=== PATIENT | female | born 1950 | race Caucasian/White ===

== ENCOUNTER → 2016-10-16 | Outpatient (CLI) | payer MEDICARE ==
--- NOTE | 2016-10-16 15:21 | BD ---
EXAMINATION TYPE: MG DEXA axial skeleton. DATE OF EXAM: 10/16/2016 COMPARISON: 08.12.2007 CLINICAL HISTORY: Z78.0 POST MENOPAUSAL W/O HRT Height: 63.5 Weight: 172 FRAX RISK QUESTIONS: Alcohol (3 or more units per day): NO Family History (Parent hip fracture): NO Glucocorticoids (More than 3mos): NO (Ex: prednisone, prednisolone, methylprednisolone, dexamethasone, and hydrocortisone). History of Fracture in Adulthood: NO Secondary Osteoporosis: NO 1. Type 1 Diabetes: NO 2. Hyperthyroidism: NO 3. Menopause before 45: NO 4. Malnutrition: NO 5. Chronic liver disease: NO Rheumatoid Arthritis: NO Current Tobacco Use: NO RISK FACTORS HISTORY OF: Family History of Osteoporosis: NONE Active: YES Diet low in dairy products/other sources of calcium: YES, A BIT LOW Postmenopausal woman: [place], AT AGE 48 Lost more than 2 inches in height since high school: NO Hyperparathyroidism: NO Adrenal Insufficiency: NO MEDICATIONS: Thyroid Medications: YES Which medication: SYNTHROID How Lon YRS Additional Medications: SPORADIC INTAKE OF CALCIUM, STATIN FOR CHOLES., ZANTAC PRN Additional History: NONE TO NOTE EXAM MEASUREMENTS: Bone mineral densitometry was performed using the [email or web address] System. Bone mineral density as measured about the Lumbar spine is: ----- L1-L4(G/cm2): 1.183 T Score Values are as follows: ----- L1: 0.0 ----- L2: -0.2 ----- L3: 0.7 ----- L4: -0.5 ----- L1-L4: 0.0 Bone mineral density has: Decreased -8.8% since study of: 08.12.2007 Bone mineral density about the R hip (g/cm2): 0.987 Bone mineral density about the L hip (g/cm2): 0.967 T Score values are as follows: -----R Neck: -0.9 -----L Neck: -0.8 -----R Total: -0.2 -----L Total: -0.3 Bone mineral density has: Increased 0.1% since study of: 08.12.2007 FRAX %'S: THERE IS A 13.0% CHANCE OF A MAJOR OSTEOPOROTIC FX AND A 0.9% CHANCE OF A HIP FX.....MA OBABILITY IN 10 YRS TIME IMPRESSION: Normal (Values between +1 and -1 indicate normal bone mass). Consider repeating this study in 5 year s or sooner if there is some new clinical indication. FOR BOTH HIPS AND LUMBAR SPINE NOTE: T-SCORE=SD OF THE YOUNG ADULT MEAN.
--- NOTE | 2016-10-16 23:32 | HP ---
DATE OF DICTATION: 10/16/2016 CHIEF COMPLAINT: The patient is here for her routine gynecologic exam and mammogram. HISTORY OF PRESENT ILLNESS: This is a 66-year-old -0-1-2 with an LMP of 1988. She is status post VIRGIL and later BSO for benign reasons. The patient has a known rectocele. She denies any significant problems from this. She is without gynecologic complaints. PAST MEDICAL HISTORY: 1. Hypothyroidism. 2. Elevated cholesterol. 3. Gastroesophageal reflux disease. MEDICATIONS: 1. Levothyroxine 25 mcg daily. 2. Simvastatin 80 mg daily. 3. Zantac 75 mg daily p.r.n. 4. Multivitamin daily. 5. Calcium supplement 500 mg daily. ALLERGIES: NO KNOWN DRUG ALLERGIES. 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 SOCIAL HISTORY: She denies tobacco, alcohol and drug use. 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 REVIEW OF SYSTEMS: She has gained about 6 pounds over the last year. She denies respiratory, cardiac or GI problems. She denies maltreatment or falling. : She denies any significant problems with urinary leakage. PHYSICAL EXAM: Blood pressure 113/80. Height 5 feet 5 inches. Weight 174 pounds. Temperature 97.7, pulse 68. This is a well-developed, well-nourished white female who is alert and oriented x3, in no acute distress. HEENT is within normal limits. NECK: Supple without mass or thyromegaly. CHEST AND LUNGS: Clear to auscultation. HEART: Regular rate and rhythm. Breasts are without mass or discharge. Axillary exam is negative for adenopathy. BACK: Negative for CVA tenderness. ABDOMEN: Soft, non-tender, without palpable masses. PELVIC EXAM: External genitalia reveal mild atrophy without lesions. Vagina reveals a grade 2 rectocele which is stable from her previous exam. The vaginal cuff is well supported. There are no lesions. Bimanual exam is negative for mass or tenderness. Rectovaginal exam does confirm a small rectocele and is negative for mass or tenderness. This is also negative for occult blood. EXTREMITIES: Non-tender. IMPRESSION: 1. Yufrf-rty-ggdl-old menopausal female, status post VIRGIL and BSO for benign reasons. 2. Asymptomatic grade 2 rectocele which is stable. PLAN: 1. Pap smears have been discontinued. 2. Self breast examination was discussed. 3. Mammogram will be done today. 4. Osteoporosis prevention was discussed. Bone density testing will be done today. 5. She will plan on getting her flu shot in the fall, as she has done last year. 6. She will return in one year. SUSIE
--- NOTE | 2016-10-17 10:55 | MM ---
Reason for exam: screening (asymptomatic). Last mammogram was performed 1 year ago. History: Patient is postmenopausal and has history of other cancer at age 61. Took estrogen for 17 years beginning at age 40. Physical Findings: A clinical breast exam by your physician is recommended on an annual basis and results should be correlated with mammographic findings. MG 3D Screening Mammo W/Cad Bilateral CC and MLO view(s) were taken. Prior study comparison: October 11, 2015, bilateral MG 3d screening mammo w/cad. September 28, 2014, bilateral MG screening mammo w CAD. September 22, 2013, bilateral MG screening mammo w CAD. There are scattered fibroglandular densities. No significant changes when compared with prior studies. ASSESSMENT: Negative, BI-RAD 1 RECOMMENDATION: Routine screening mammogram of both breasts in 1 year.
== END | disposition home or self-care (01) ==
LOC: WWCWWP 07:38
PROVIDERS: ATTEND Obstetrics & Gynecology
DX: Z12.31 Encounter for screening mammogram for malignant neoplasm of breast (principal); Z78.0 Asymptomatic menopausal state
CPT/HCPCS: 77080; 77063; G0202

== ENCOUNTER → 2017-10-30 | Outpatient (CLI) | payer MEDICARE ==
[2017-10-30 11:48] VITALS: BP 114/63; PULSE 69; TEMP 97.1; BMI 29.1
--- NOTE | 2017-10-30 12:37 | P.HPOB ---
History of Present Illness H&P Date: 10/30/17 Chief Complaint: The patient is here for her routine gynecologic exam and mammogram. This is a 67-year-old 012 with an LMP of 1988. She is status post VIRGIL and later BSO for benign reasons. The patient has a known rectocele. She denies any significant problems from this. She is without gynecologic complaints. Review of Systems Weight has been stable. She denies respiratory or cardiac problems. G.I.: she has occasionally had some issues swallowing if she eats too fast and this can be with certain types of foods. She is planning and getting in upper endoscopy done because of this. Past Medical History Past Medical History: GERD/Reflux, Hyperlipidemia, Thyroid Disorder (Hypothyroid ) History of Any Multi-Drug Resistant Organisms: None Reported Past Surgical History: Hysterectomy (VIRGIL in 1988 with BSO in 1997.) Additional Past Surgical History / Comment(s): Bunion surgery. Colonoscopy 2011 (3rd). 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 - Past Family History Father Family Medical History: Myocardial Infarction ([place]) Brother(s) Family Medical History: Myocardial Infarction ([place]) Additional Family Medical History / Comment(s): Another brother had skin cancer. Medications and Allergies Home Medications Medication Instructions Recorded Confirmed Type Levothyroxine Sodium [Synthroid] mcg PO DAILY 10/30/17 History Multivitamin [Multivitamins Adult tab PO DAILY 10/30/17 History Gummies] Ranitidine HCl [Zantac] mg PO PRN 10/30/17 History Simvastatin mg PO DAILY 10/30/17 History Allergies Allergy/AdvReac Type Severity Reaction Status Date / Time No Known Allergies Allergy Unverified 10/30/17 11:43 Exam Vital Signs Temp Pulse BP 10/30/17 11:44 97.1 F L 69 114/63 Intake and Output 10/29/17 10/30/17 10/30/17 22:59 06:59 14:59 Other: Weight 79.379 kg Height 5'5", BMI 29.1. This is a well-developed well-nourished white female who is alert and oriented times 3 in no acute distress. HEENT: Within normal limits. NECK: Supple without mass or thyromegaly. CHEST AND LUNGS: Clear to auscultation. HEART: Regular rate and rhythm. BREASTS: Are without mass or discharge. AXILLARY EXAM: Negative for adenopathy. BACK: Negative for CVA tenderness. ABDOMEN: Soft, nontender, without palpable masses. PELVIC EXAM: External genitalia appears normal with mild atrophy. Vagina appears normal with mild atrophy. There is a grade 2 rectocele which is stable from her previous exams. There are no palpable pelvic masses or tenderness. RECTAL EXAM: Rectovaginal exam is negative for mass or tenderness and is negative for occult blood. This exam does confirm a small rectocele. EXTREMITIES: Nontender. IMPRESSION: 1. 67-year-old menopausal female status post VIRGIL and later BSO for benign reasons. 2. Asymptomatic grade 2 rectocele which is stable. PLAN: 1. Pap smears have been discontinued. 2. Self breast awareness was discussed with the patient. 3. Screening mammogram will be done today. 4. Osteoporosis prevention was discussed. She had a normal bone density test on 10/16/2016. This will be repeated in approximately 2021. 5. She does get flu shots in the fall. 6. She will return in one year.
--- NOTE | 2017-10-31 11:02 | MM ---
Reason for exam: screening (asymptomatic). Last mammogram was performed 1 year ago. History: Patient is postmenopausal and has history of other cancer at age 61. Took estrogen for 17 years beginning at age 40. Physical Findings: A clinical breast exam by your physician is recommended on an annual basis and results should be correlated with mammographic findings. MG 3D Screening Mammo W/Cad Bilateral CC and MLO view(s) were taken. Prior study comparison: October 16, 2016, bilateral MG 3d screening mammo w/cad. October 11, 2015, bilateral MG 3d screening mammo w/cad. The breast tissue is heterogeneously dense. This may lower the sensitivity of mammography. There is no discrete abnormality. No significant changes when compared with prior studies. ASSESSMENT: Negative, BI-RAD 1 RECOMMENDATION: Routine screening mammogram of both breasts in 1 year.
== END | disposition home or self-care (01) ==
LOC: WWCWWP 10:47
PROVIDERS: ATTEND Obstetrics & Gynecology
DX: Z12.31 Encounter for screening mammogram for malignant neoplasm of breast (principal)
CPT/HCPCS: 77063; 77067

== ENCOUNTER → 2018-04-14 | Outpatient (CLI) | payer MEDICARE ==
--- NOTE | 2018-04-15 07:45 | ECHOS ---
STRESS ECHOCARDIOGRAM DATE OF SERVICE: 04/14/2018 INDICATIONS: Chest pain. MEDICATIONS: Simvastatin, Synthroid. BASELINE HEART RATE: 92 BASELINE BLOOD PRESSURE: 100/56 MAXIMUM HEART RATE: 154 MAXIMUM BLOOD PRESSURE: 151/53 85% MPHR: 129 100% MPHR: 152 METS: 8.5 MAXIMUM STAGE REACHED: III TOTAL EXERCISE TIME: 7 minutes CLINICAL INFORMATION: Baseline EKG revealed normal sinus rhythm without significant ST-segment changes. Patient walked on a standard Ger protocol for a total duration of 7 minutes and achieved a maximal heart rate of 154 beats per minute which is well above 85% of predicted maximal. She developed some fatigue and shortness of breath but did not have any anginal symptoms. EKG developed some upsloping ST-segment changes which are considered very nonspecific. In the recovery period, there was about [address]-segment change and ST-segment depression noted unassociated with angina. The patient did not have any significant arrhythmia. By EKG criteria, this is technically considered as a positive stress test because of [address]-segment depression but no associated symptoms of angina were noted. At peak exercise, upsloping say ST-segment changes were noted. Patient exercised for 7 minutes. Baseline echo images revealed normal wall motion and wall thickening of all segments. At peak exercise, there was good augmentation of left ventricular wall motion and wall thickening of all segments suggesting that there is no evidence of any stress-induced ischemia on this study. FINAL IMPRESSION: 1. Fair exercise capacity with a technically positive stress test by EKG criteria, but this could be a false-positive. Patient did not have any angina or arrhythmia. 2. Stress echocardiogram was normal, suggesting that there is no evidence of any stress-induced ischemia on this study. MMODL / IJN: [id number] /
== END | disposition home or self-care (01) ==
LOC: RADNMMAIN 09:00
PROVIDERS: ATTEND Family Medicine
DX: R07.9 Chest pain, unspecified (principal); E78.2 Mixed hyperlipidemia; I25.10 Atherosclerotic heart disease of native coronary artery without angina pectoris
CPT/HCPCS: 93351

== ENCOUNTER → 2018-12-10 | Outpatient (CLI) | payer MEDICARE ==
[2018-12-10 09:19] VITALS: BP 104/65; PULSE 72; RESP 18; TEMP 98; BMI 30.2
--- NOTE | 2018-12-10 09:50 | P.HPOB ---
History of Present Illness H&P Date: 12/10/18 Chief Complaint: The patient is here for her routine gynecologic exam and ma mmogram. This is a 68-year-old with an LMP of 1988. The patient is status post VIRGIL and later BSO for benign reasons. The patient has a known rectocele and she denies any significant problems with this. She is without gynecologic complaints. Review of Systems She has gained about 7 pounds over the last year. She denies respiratory, cardiac and G.I. problems. She denies maltreatment or problems with falling. : she denies any significant problems with urinary leakage. Past Medical History Past Medical History: GERD/Reflux, Hyperlipidemia, Thyroid Disorder Additional Past Medical History / Comment(s): Hypothyroidism. 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 History of Any Multi-Drug Resistant Organisms: None Reported Past Surgical History: Hysterectomy Additional Past Surgical History / Comment(s): VIRGIL in 1988 and BSO in 1997. Bunion surgery. Colonoscopy 2011 (3rd). 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 - Past Family History Father Family Medical History: Myocardial Infarction ([place]) Brother(s) Family Medical History: [place]ocardial Infarction ([place]) Additional Family Medical History / Comment(s): Another brother had skin cancer. Medications and Allergies Home Medications Medication Instructions Recorded Confirmed Type Levothyroxine Sodium [Synthroid] 25 mcg PO DAILY 10/30/17 12/10/18 History Multivitamin [Multivitamins Adult 1 tab PO DAILY 10/30/17 12/10/18 History Gummies] Ranitidine HCl [Zantac] 150 mg PO DAILY PRN 10/30/17 12/10/18 History Simvastatin 80 mg PO DAILY 10/30/17 12/10/18 History Allergies Allergy/AdvReac Type Severity Reaction Status Date / Time No Known Allergies Allergy Unverified 12/10/18 09:21 Exam Vital Signs Temp Pulse Resp BP Pulse Ox 12/10/18 09:14 98.0 F 72 18 104/65 98 Intake and Output 12/09/18 12/10/18 12/10/18 22:59 06:59 14:59 Other: Weight 82.554 kg Height 5'5", weight 182 pounds, BMI 30.3. This is a well-developed well-nourished white female who is alert and oriented times 3 in no acute distress. HEENT: Within normal limits. NECK: Supple without mass or thyromegaly. CHEST AND LUNGS: Clear to auscultation. HEART: Regular rate and rhythm. BREASTS: Are without mass or discharge. AXILLARY EXAM: Negative for adenopathy. BACK: Negative for CVA tenderness. ABDOMEN: Soft, nontender, without palpable masses. PELVIC EXAM: External genitalia appears normal with mild atrophy. Vagina appears normal with mild atrophy. There is a grade to rectocele at rest. With Valsalva the rectocele approaches the introitus. There is no significant cystocele or enterocele. Bimanual examination is negative for mass or tenderness. RECTAL EXAM: Rectovaginal exam is negative for mass or tenderness and is negative for occult blood. Rectal exam confirms the rectocele. EXTREMITIES: Nontender. IMPRESSION: 1. 68-year-old menopausal female status post VIRGIL and later BSO for benign reasons with asymptomatic grade 2 to 3 rectocele. PLAN: 1. Pap smears have been discontinued. 2. Self breast awareness was discussed with the patient. 3. Screening mammogram will be done today. 4. Osteoporosis prevention was discussed. I have stressed the importance of adequate calcium, vitamin D and regular exercise. Recommended amounts of calcium and vitamin D were also discussed. She had a normal bone density test done on 10/16/2016 and this will be repeated in 2021 5. She does get flu shots in the fall. 6. She was advised to return in one year for her annual well woman exam.
--- NOTE | 2018-12-11 14:23 | MM ---
Reason for exam: screening (asymptomatic). Last mammogram was performed 1 year and 1 month ago. History: Patient is postmenopausal and has history of other cancer at age 61. Took estrogen for 17 years beginning at age 40. Physical Findings: A clinical breast exam by your physician is recommended on an annual basis and results should be correlated with mammographic findings. MG 3D Screening Mammo W/Cad Bilateral CC and MLO view(s) were taken. Prior study comparison: October 30, 2017, bilateral MG 3d screening mammo w/cad. October 16, 2016, bilateral MG 3d screening mammo w/cad. The breast tissue is heterogeneously dense. This may lower the sensitivity of mammography. No suspicious abnormality. No significant changes when compared with prior studies. ASSESSMENT: Negative, BI-RAD 1 RECOMMENDATION: Routine screening mammogram of both breasts in 1 year.
== END | disposition home or self-care (01) ==
LOC: WWCWWP 08:54
PROVIDERS: ATTEND Obstetrics & Gynecology
DX: Z12.31 Encounter for screening mammogram for malignant neoplasm of breast (principal)
CPT/HCPCS: 77063; 77067

== ENCOUNTER → 2019-12-29 | Outpatient (CLI) | payer MEDICARE ==
[2019-12-29 08:00] VITALS: BP 105/61; PULSE 70; RESP 18; TEMP 98.1
--- NOTE | 2019-12-29 08:31 | P.HPOB ---
History of Present Illness H&P Date: 12/29/19 Chief Complaint: The patient is here for her routine gynecologic exam and ma mmogram. This is a 69-year-old with an LMP of 1988. The patient is status post VIRGIL and later BSO for benign reasons. The patient is without gynecologic complaints. She has a known rectocele and denies any significant problems with this. Review of Systems The patient has lost 13 pounds over the last year. She denies respiratory, cardiac, or G.I. problems. Past Medical History Past Medical History: GERD/Reflux, Hyperlipidemia, Thyroid Disorder Additional Past Medical History / Comment(s): Hypothyroidism. 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 History of Any Multi-Drug Resistant Organisms: None Reported Past Surgical History: Hysterectomy Additional Past Surgical History / Comment(s): VIRGIL in 1988 and BSO in 1997. Bunion surgery. Colonoscopy 2018(Next after 5yr). Past Psychological History: No Psychological Hx Reported Smoking Status: Never smoker Past Alcohol Use History: Rare (5. 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 - Past Family History Father Family Medical History: Myocardial Infarction ([place]) Brother(s) Family Medical History: Myocardial Infarction ([place]) Additional Family Medical History / Comment(s): Another brother had skin cancer. Medications and Allergies Home Medications Medication Instructions Recorded Confirmed Type Levothyroxine Sodium [Synthroid] 25 mcg PO DAILY 10/30/17 12/29/19 History Multivitamin [Multivitamins Adult 1 tab PO DAILY 10/30/17 12/29/19 History Gummies] Simvastatin 80 mg PO DAILY 10/30/17 12/29/19 History Famotidine [Pepcid] 20 mg PO DAILY 12/29/19 12/29/19 History Allergies Allergy/AdvReac Type Severity Reaction Status Date / Time No Known Allergies Allergy Unverified 12/29/19 07:52 Exam Vital Signs Temp Pulse Resp BP Pulse Ox 12/29/19 07:57 98.1 F 70 18 105/61 99 Intake and Output 12/28/19 12/29/19 12/29/19 22:59 06:59 14:59 Other: Weight 76.657 kg Height 5 feet 4 inches, weight 169 pounds, BMI 29.0. This is a well-developed well-nourished white female who is alert and oriented times 3 in no acute distress. HEENT: Within normal limits. NECK: Supple without mass or thyromegaly. CHEST AND LUNGS: Clear to auscultation. HEART: Regular rate and rhythm. BREASTS: Are without mass or discharge. AXILLARY EXAM: Negative for adenopathy. BACK: Negative for CVA tenderness. ABDOMEN: Soft, nontender, without palpable masses. PELVIC EXAM: External genitalia appears normal with mild atrophy. Vagina appears normal with mild atrophy. There is a grade 2 rectocele at rest. It increases slightly with Valsalva. Bimanual examination is negative for mass or tenderness. RECTAL EXAM: Rectovaginal exam is negative for mass or tenderness and is negative for occult blood. Rectal exam also confirms the rectocele. There is no evidence of enterocele. EXTREMITIES: Nontender. IMPRESSION: 1. 69-year-old menopausal female status post VIRGIL and later BSO for benign reasons with stable asymptomatic grade 2-3 rectocele. PLAN: 1. Pap smears have been discontinued. 2. Self breast awareness was discussed with the patient. 3. Screening mammogram will be done today. 4. Osteoporosis prevention was discussed. I have stressed the importance of adequate calcium, vitamin D and regular exercise. Recommended amounts of calcium and vitamin D were also discussed. Since she had a normal bone density test in 2016, we will plan on repeating this in 2021. 5. She has received her flu shot this fall. 6. The patient was advised to return in 1-2 years for her well woman examination and as needed.
--- NOTE | 2019-12-30 09:55 | MM ---
Reason for exam: screening (asymptomatic). Last mammogram was performed 1 year and 1 month ago. History: Patient is postmenopausal and has history of other cancer at age 61. Took estrogen for 17 years beginning at age 40. Physical Findings: A clinical breast exam by your physician is recommended on an annual basis and results should be correlated with mammographic findings. MG 3D Screening Mammo W/Cad Bilateral CC and MLO view(s) were taken. Prior study comparison: December 10, 2018, bilateral MG 3d screening mammo w/cad. October 30, 2017, bilateral MG 3d screening mammo w/cad. The breast tissue is heterogeneously dense. This may lower the sensitivity of mammography. Focal asymmetry central upper right breast. This finding is changed when compared with previous exams. ASSESSMENT: Incomplete: need additional imaging evaluation, BI-RAD 0 RECOMMENDATION: Special view mammogram of the right breast. If lesion persists on supplemental views, image directed ultrasound is recommended. [facility] will attempt to contact patient to return for supplemental views and ultrasound if indicated.
== END | disposition home or self-care (01) ==
LOC: WWCWWP 07:40
PROVIDERS: ATTEND Obstetrics & Gynecology
DX: Z12.31 Encounter for screening mammogram for malignant neoplasm of breast (principal)
CPT/HCPCS: 77063; 77067

== ENCOUNTER → 2021-01-03 | Outpatient (CLI) | payer MEDICARE ==
[2021-01-03 14:18] VITALS: BP 112/75; PULSE 77; RESP 18; TEMP 98.7
--- NOTE | 2021-01-03 15:33 | P.HPOB ---
History of Present Illness H&P Date: 01/03/21 Chief Complaint: The patient is here for her routine gynecologic exam and ma mmogram. This is a 69-year-old 012 with an LMP of 1988. Patient is status post VIRGIL and later BSO for benign reasons. The patient has a history of a known rectocele. She occasionally feels like there is a bulge in the vagina, but denies seeing anything protruding from the vaginal opening. She does have occasional sensation like she has to get to the bathroom to urinate right away. She is otherwise without complaints. Review of Systems She has gained about 6 pounds over the past year. She denies respiratory, cardiac and G.I. problems. She denies maltreatment or problems with falling. : She occasionally has a sensation that she has to get to the bathroom right away to urinate. Past Medical History Past Medical History: GERD/Reflux, Hyperlipidemia, Thyroid Disorder Additional Past Medical History / Comment(s): Hypothyroidism. 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 History of Any Multi-Drug Resistant Organisms: None Reported Past Surgical History: Hysterectomy Additional Past Surgical History / Comment(s): VIRGIL in 1988 and BSO in 1997. Bunion surgery. Colonoscopy 2018(Next after 5yr). 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 - Past Family History Father Family Medical History: Myocardial Infarction ([place]) Brother(s) Family Medical History: Myocardial Infarction ([place]) Additional Family Medical History / Comment(s): Another brother had skin cancer. Medications and Allergies Home Medications Medication Instructions Recorded Confirmed Type Levothyroxine Sodium [Synthroid] 25 mcg PO DAILY 10/30/17 01/03/21 History Multivitamin [Multivitamins Adult 1 tab PO DAILY 10/30/17 01/03/21 History Gummies] Simvastatin 80 mg PO DAILY 10/30/17 01/03/21 History Famotidine [Pepcid] 20 mg PO DAILY 12/29/19 01/03/21 History Allergies Allergy/AdvReac Type Severity Reaction Status Date / Time No Known Allergies Allergy Unverified 01/03/21 14:13 Exam Vital Signs Temp Pulse Resp BP Pulse Ox 01/03/21 14:13 98.7 F 77 18 112/75 96 Intake and Output 01/03/21 01/03/21 01/03/21 06:59 14:59 22:59 Other: Weight 79.379 kg Height 5 feet 4-1/2 inches, weight 175 pounds, BMI 29.6. This is a well-developed well-nourished white female who is alert and oriented times 3 in no acute distress. HEENT: Within normal limits. NECK: Supple without mass or thyromegaly. CHEST AND LUNGS: Clear to auscultation. HEART: Regular rate and rhythm. BREASTS: Are without mass or discharge. AXILLARY EXAM: Negative for adenopathy. BACK: Negative for CVA tenderness. ABDOMEN: Soft, nontender, without palpable masses. PELVIC EXAM: External genitalia appears normal with mild atrophy. Vagina re veals a grade 2-3 rectocele which is stable from her previous exam. The vaginal mucosa is noninflamed with no ulceration or induration. There is no evidence of cystocele. The vaginal cuff is well supported. Bimanual examination is negative for mass or tenderness. RECTAL EXAM: Rectovaginal exam is negative for mass or tenderness and is negative for occult blood. Rectal exam does confirm the rectocele as above. EXTREMITIES: Nontender. IMPRESSION: 1. 70-year-old menopausal female status post VIRGIL and later BSO for benign reasons, with stable grade 2-3 rectocele which is asymptomatic. 2. Occasional urinary urgency. PLAN: 1. Pap smears have been discontinued. 2. Self breast awareness was discussed with the patient. We have also discussed symptoms associated with inflammatory breast cancer. 3. Screening mammogram was done today. 4. Osteoporosis prevention was discussed. I have stressed the importance of adequate calcium, vitamin D and regular exercise. Recommended amounts of ca lcium and vitamin D were also discussed. Her last bone density test was normal in 2017. We will plan on repeating this next year. 5. She has completed her Covid vaccination series. 6. We have discussed the intermittent urinary urgency. I have instructed her to use ketal exercises on a regular basis. She will do sets of 23 times daily. She will try to avoid holding urine and stool longer than necessary. If she continues to have symptoms of an overactive bladder, consider medication treatment with an anticholinergic. 7. She was advised to return in one year for her annual well woman exam.
--- NOTE | 2021-01-05 11:46 | MM ---
Reason for exam: screening (asymptomatic). Last mammogram was performed 1 year ago. History: Patient is postmenopausal and has history of other cancer at age 61. Took hormonal contraceptives for 10 years. Took estrogen for 17 years beginning at age 40. Physical Findings: A clinical breast exam by your physician is recommended on an annual basis and results should be correlated with mammographic findings. MG 3D Screening Mammo W/Cad Bilateral CC and MLO view(s) were taken. Prior study comparison: December 29, 2019, bilateral MG 3d screening mammo w/cad. December 10, 2018, bilateral MG 3d screening mammo w/cad. October 30, 2017, bilateral MG 3d screening mammo w/cad. There are scattered fibroglandular densities. No significant changes when compared with prior studies. ASSESSMENT: Benign, BI-RAD 2 RECOMMENDATION: Routine screening mammogram of both breasts in 1 year.
== END ==
LOC: WWCWWP 13:42
PROVIDERS: ATTEND Obstetrics & Gynecology
DX: Z12.31 Encounter for screening mammogram for malignant neoplasm of breast (principal); Z01.419 Encounter for gynecological examination (general) (routine) without abnormal findings; R39.15 Urgency of urination; E78.5 Hyperlipidemia, unspecified; E03.9 Hypothyroidism, unspecified; Z90.710 Acquired absence of both cervix and uterus; Z90.722 Acquired absence of ovaries, bilateral
CPT/HCPCS: 77063; 77067

== ENCOUNTER 2021-12-19 03:49 | Emergency (ER) | payer MEDICARE ==
[2021-12-19] MEDS ORDERED: HYDROmorphone 0.5 MG/0.5 ML SYRINGE IVP STA (04:02)
[2021-12-19] MEDS ORDERED: SODIUM CHLORIDE 0.9% 500 ML 500 ML IV STA (04:02)
[2021-12-19 04:31] LABS: Basophils % (A) 0 %; Eosinophils # (A) 0.1 k/uL (0-0.7); Eosinophils % (A) 1 %; HCT 42.3 % (34.0-46.0); HGB 13.8 gm/dL (11.4-16.0); Lymphocytes # (A) 1.9 k/uL (1.0-4.8); Lymphocytes % (A) 15 %; MCHC 32.5 g/dL (31.0-37.0); MCV 92.2 fL (80.0-100.0); Mean Platelet Volume 7.3; Monocytes # (A) 0.5 k/uL (0-1.0); Monocytes % (A) 4 %; Neutrophils # (A) 10.2 k/uL (1.3-7.7); Neutrophils % (A) 78 %; Platelet Count 308 k/uL (150-450); RBC 4.59 m/uL (3.80-5.40); RDW 13.7 % (11.5-15.5)
[2021-12-19 04:36] LABS: Appearance,Urine Clear (Clear); Bilirubin,Urine Negative (Negative); Blood,Urine Trace (Negative); Color,Urine Light Yellow; Glucose,Urine (UA) Negative (Negative); Ketones,Urine Negative (Negative); Leukocyte Esterase,Urine Negative (Negative); Mucus,Urine Rare /hpf; Nitrite,Urine Negative (Negative); PH, Urine 5.5 (5.0-8.0); Protein,Urine Negative (Negative); RBC,Urine 2 /hpf (0-5); Specific Gravity,Urine 1.019 (1.001-1.035); Squamous Epithelial Cell,Urine <1 /hpf (0-4); Urobilinogen,Urine <2.0 mg/dL (<2.0); WBC,Urine 1 /hpf (0-5)
--- NOTE | 2021-12-19 04:36 | CT ---
EXAMINATION TYPE: CT abdomen pelvis wo con DATE OF EXAM: 12/19/2021 COMPARISON: None HISTORY: LLQ pain CT DLP: 743.6 mGycm Automated exposure control for dose reduction was used. Images obtained from the diaphragm to the floor the pelvis with no contrast. The lung bases are clear of consolidation. No pleural effusion. Heart size is normal. No pericardial effusion. There is small hiatal hernia. Stomach is intact. Gallbladder is intact. There are rounded f luid densities in the left lobe of the liver that measure up to 2.5 cm and consistent with simple cys ts. Spleen is intact. No pancreatic mass. The bile ducts are not dilated. There is no adrenal mass. Left kidney shows hydronephrosis and perinephric edema. There is left-sided periureteral edema and hy droureter. No definite ureteral calculus seen. Right kidney shows no sign of obstruction. There is no retroperitoneal adenopathy. Appendix is posterior and appears normal. The urinary bladder is almost empty. No inguinal hernia. No free fluid in the pelvis. There are a few sigmoid diverticula. No diverticulitis. No pelvic mass. There is no mesenteric edema. No ascites or free air. No sign of a bowel obstruction. The lumbar vert ebra appear intact. No compression fracture. Bony pelvis is intact. The hip joints are intact. Sacroi liac joints appear normal. IMPRESSION: Left-sided hydronephrosis and hydroureter. No calculus seen. This could relate to recently passed sto ne or nonopaque stone. Also consider pyelonephritis. Normal appendix. Multiple hepatic cysts.
[2021-12-19 04:47] LABS: INR 0.9 (<1.2); Partial Thromboplastin Time 21.2 sec (22.0-30.0); Prothrombin Time 9.7 sec (9.0-12.0)
[2021-12-19 04:59] LABS: Albumin 4.3 g/dL (3.5-5.0); Calcium 10.2 mg/dL (8.4-10.2); Potassium 4.3 mmol/L (3.5-5.1); Total Bilirubin 0.4 mg/dL (0.2-1.3); Total Protein 6.7 g/dL (6.3-8.2)
[2021-12-19] MEDS ORDERED: KETOROLAC 15 MG/ML 1 ML VIAL IVP STA (05:18)
[2021-12-19] MEDS ORDERED: ONDANSETRON 4 MG/2 ML VIAL IVP STA (05:18)
--- NOTE | 2021-12-19 05:32 | ED ---
General Adult HPI - General Chief complaint: Abdominal Pain Stated complaint: abd pain Time Seen by Provider: 12/19/21 04:02 Source: patient, family, RN notes reviewed, old records reviewed Mode of arrival: ambulatory Limitations: no limitations - History of Present Illness Initial comments: 71-year-old female with left-sided abdominal pain. This was sudden in onset, associated with nausea and vomiting. Patient states she has been somewhat constipated. No preceding fever. No prior history of renal colic. She had several episodes of vomiting prior to arrival. Pain was severe. - Related Data Home Medications Medication Instructions Recorded Confirmed Levothyroxine Sodium [Synthroid] 25 mcg PO DAILY 10/30/17 01/03/21 Multivitamin [Multivitamins Adult 1 tab PO DAILY 10/30/17 01/03/21 Gummies] Simvastatin 80 mg PO DAILY 10/30/17 01/03/21 Famotidine [Pepcid] 20 mg PO DAILY 12/29/19 01/03/21 Previous Rx's Medication Instructions Recorded HYDROcodone/APAP 5-325MG [Dennis 1 tab PO Q6HR PRN #12 tab 12/19/21 5-325] Tamsulosin [Flomax] 0.4 mg PO DAILY 7 Days #7 cap 12/19/21 Allergies Allergy/AdvReac Type Severity Reaction Status Date / Time No Known Allergies Allergy Verified 12/19/21 03:58 Review of Systems ROS Statement: Those systems with pertinent positive or pertinent negative responses have been documented in the HPI. ROS Other: All systems not noted in ROS Statement are negative. Past Medical History Past Medical History: GERD/Reflux, Hyperlipidemia, Thyroid Disorder Additional Past Medical History / Comment(s): Hypothyroidism. 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 History of Any Multi-Drug Resistant Organisms: None Reported Past Surgical History: Hysterectomy Additional Past Surgical History / Comment(s): VIRGIL in 1988 and BSO in 1997. Bunion surgery. Colonoscopy 2018(Next after 5yr). Past Psychological History: No Psychological Hx Reported Smoking Status: Never smoker Past Alcohol Use History: Rare Past Drug Use History: None Reported - Past Family History Father Family Medical History: Myocardial Infarction ([place]) Brother(s) Family Medical History: Myocardial Infarction ([place]) Additional Family Medical History / Comment(s): Another brother had skin cancer. General Exam Limitations: no limitations General appearance: alert, in no apparent distress Head exam: Present: atraumatic, normocephalic Eye exam: Present: normal appearance, PERRL ENT exam: Present: normal exam Neck exam: Present: normal inspection. Absent: tenderness, meningismus Respiratory exam: Present: normal lung sounds bilaterally. Absent: respiratory distress, wheezes Cardiovascular Exam: Present: regular rate, normal rhythm GI/Abdominal exam: Present: soft, tenderness (Mild left lower quadrant tenderness). Absent: distended, guarding Extremities exam: Present: normal inspection, normal capillary refill. Absent: pedal edema Neurological exam: Present: alert, oriented X3, CN II-XII intact. Absent: motor sensory deficit Psychiatric exam: Present: normal affect, normal mood Skin exam: Present: warm, dry Course Vital Signs 12/19/21 03:53 Temperature 97.6 F Pulse Rate 82 Respiratory 22 Rate Blood Pressure 145/82 O2 Sat by Pulse 98 Oximetry Medical Decision Making - Medical Decision Making 71-year-old female with left-sided abdominal pain which began abruptly. I did have high suspicion for renal colic and kidney stone. Workup was initiated, she has a mild leukocytosis with left shift, normal electrolytes, creatinine 1.2. Urinalysis is negative for significant hemorrhage or signs of infection. CT of the abdomen and pelvis is performed which shows a left hydroureter and hydronephrosis and likely distal stone. This does explain the patient's pain. Given antiemetics, pain medicine and IV fluids in the emergency department. Patient feeling better, history, physical, and imaging consistent with obstructive kidney stone. Patient feeling much better, given strict return parameters. She will strain her urine and follow-up with urology. - Lab Data Result diagrams: 12/19/21 04:06 12/19/21 04:06 Lab Results 12/19/21 12/19/21 12/19/21 Range/Units 04:06 04:06 04:06 WBC 13.0 H (3.8-10.6) k/uL RBC 4.59 (3.80-5.40) m/uL Hgb 13.8 (11.4-16.0) gm/dL Hct 42.3 (34.0-46.0) % MCV 92.2 (80.0-100.0) fL MCH 30.0 (25.0-35.0) pg MCHC 32.5 (31.0-37.0) g/dL RDW 13.7 (11.5-15.5) % Plt Count 308 (150-450) k/uL MPV 7.3 Neutrophils % 78 % Lymphocytes % 15 % Monocytes % 4 % Eosinophils % 1 % Basophils % 0 % Neutrophils # 10.2 H (1.3-7.7) k/uL Lymphocytes # 1.9 (1.0-4.8) k/uL Monocytes # 0.5 (0-1.0) k/uL Eosinophils # 0.1 (0-0.7) k/uL Basophils # 0.0 (0-0.2) k/uL PT 9.7 (9.0-12.0) sec INR 0.9 (<1.2) APTT 21.2 L (22.0-30.0) sec Sodium 137 (137-145) mmol/L Potassium 4.3 (3.5-5.1) mmol/L Chloride 100 (98-107) mmol/L Carbon Dioxide 25 (22-30) mmol/L Anion Gap 12 mmol/L BUN 24 H (7-17) mg/dL Creatinine 1.22 H (0.52-1.04) mg/dL Est GFR (CKD-EPI)AfAm 52 (>60 ml/min/1.73 sqM) Est GFR (CKD-EPI)NonAf 45 (>60 ml/min/1.73 sqM) Glucose 106 H (74-99) mg/dL Calcium 10.2 (8.4-10.2) mg/dL Total Bilirubin 0.4 (0.2-1.3) mg/dL AST 19 (14-36) U/L ALT 16 (4-34) U/L Alkaline Phosphatase 87 (38-126) U/L Total Protein 6.7 (6.3-8.2) g/dL Albumin 4.3 (3.5-5.0) g/dL Amylase 54 (30-110) U/L Lipase 97 (23-300) U/L Urine Color Urine Appearance (Clear) Urine pH (5.0-8.0) Ur Specific [place] (1.001-1.035) Urine Protein (Negative) Urine Glucose (UA) (Negative) Urine Ketones (Negative) Urine Blood (Negative) Urine Nitrite (Negative) Urine Bilirubin (Negative) Urine Urobilinogen (<2.0) mg/dL Ur Leukocyte Esterase (Negative) Urine RBC (0-5) /hpf Urine WBC (0-5) /hpf Ur Squamous Epith Cells (0-4) /hpf Urine Mucus (None) /hpf 12/19/21 Range/Units 04:10 WBC (3.8-10.6) k/uL RBC (3.80-5.40) m/uL Hgb (11.4-16.0) gm/dL Hct (34.0-46.0) % MCV (80.0-100.0) fL MCH (25.0-35.0) pg MCHC (31.0-37.0) g/dL RDW (11.5-15.5) % Plt Count (150-450) k/uL MPV Neutrophils % % Lymphocytes % % Monocytes % % Eosinophils % % Basophils % % Neutrophils # (1.3-7.7) k/uL Lymphocytes # (1.0-4.8) k/uL Monocytes # (0-1.0) k/uL Eosinophils # (0-0.7) k/uL Basophils # (0-0.2) k/uL PT (9.0-12.0) sec INR (<1.2) APTT (22.0-30.0) sec Sodium (137-145) mmol/L Potassium (3.5-5.1) mmol/L Chloride (98-107) mmol/L Carbon Dioxide (22-30) mmol/L Anion Gap mmol/L BUN (7-17) mg/dL Creatinine (0.52-1.04) mg/dL Est GFR (CKD-EPI)AfAm (>60 ml/min/1.73 sqM) Est GFR (CKD-EPI)NonAf (>60 ml/min/1.73 sqM) Glucose (74-99) mg/dL Calcium (8.4-10.2) mg/dL Total Bilirubin (0.2-1.3) mg/dL AST (14-36) U/L ALT (4-34) U/L Alkaline Phosphatase (38-126) U/L Total Protein (6.3-8.2) g/dL Albumin (3.5-5.0) g/dL Amylase (30-110) U/L Lipase (23-300) U/L Urine Color Light Yellow Urine Appearance Clear (Clear) Urine pH 5.5 (5.0-8.0) Ur Specific [place] 1.019 (1.001-1.035) Urine Protein Negative (Negative) Urine Glucose (UA) Negative (Negative) Urine Ketones Negative (Negative) Urine Blood Trace H (Negative) Urine Nitrite Negative (Negative) Urine Bilirubin Negative (Negative) Urine Urobilinogen <2.0 (<2.0) mg/dL Ur Leukocyte Esterase Negative (Negative) Urine RBC 2 (0-5) /hpf Urine WBC 1 (0-5) /hpf Ur Squamous Epith Cells <1 (0-4) /hpf Urine Mucus Rare H (None) /hpf Disposition Clinical Impression: Calculus of kidney Disposition: HOME SELF-CARE Condition: Fair Instructions (If sedation given, give patient instructions): Kidney Stones (ED), Renal Colic (ED), How to Strain Your Urine (ED) Prescriptions: Tamsulosin [Flomax] 0.4 mg PO DAILY 7 Days #7 cap HYDROcodone/APAP 5-325MG [Dennis 5-325] 1 tab PO Q6HR PRN #12 tab PRN Reason: Pain Is patient prescribed a controlled substance at d/c from ED?: No Referrals: Weston Chau MD [Primary Care Provider] - 1-2 days Paresh Chapman MD [STAFF PHYSICIAN] - 1-2 days Time of Disposition: 06:16
[2021-12-19 06:22] VITALS: BP 144/84; PULSE 78; RESP 18; TEMP 97.7
== END 2021-12-19 06:20 | disposition home or self-care (01) ==
LOC: EC 03:49
DX: N20.0 Calculus of kidney (principal); K21.9 Gastro-esophageal reflux disease without esophagitis; E78.5 Hyperlipidemia, unspecified; E03.9 Hypothyroidism, unspecified; Z79.890 Hormone replacement therapy
CPT/HCPCS: 36415; 80053; 82150; 83690; 85025; 85610; 85730; 81001; 74176; 99284; 96374; 96375 ×2; 96361; J2405; J1885; J1170

== ENCOUNTER → 2022-01-09 | Outpatient (CLI) | payer MEDICARE ==
[2022-01-09 09:00] VITALS: BP 124/80; PULSE 69; RESP 17; TEMP 98.3
--- NOTE | 2022-01-09 09:37 | P.HPOB ---
History of Present Illness H&P Date: 01/09/22 Chief Complaint: The patient is here for her routine gynecologic exam and ma mmogram. This is a 71-year-old 012 with an LMP of 1988. She is status post VIRGIL and later BSO for benign reasons. She has a known rectocele. She denies anything protruding from the vaginal opening. She occasionally feels like something is in the vagina, but this is not a big problem for her. Review of Systems The patient has lost 4 pounds over the last year. She denies respiratory, cardiac, or G.I. problems. Past Medical History Past Medical History: GERD/Reflux, Hyperlipidemia, Thyroid Disorder Additional Past Medical History / Comment(s): Hypothyroidism. 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 History of Any Multi-Drug Resistant Organisms: None Reported Past Surgical History: Hysterectomy Additional Past Surgical History / Comment(s): VIRGIL in 1988 and BSO in 1997. Bunion surgery. Colonoscopy 2018(Next after 5yr). Past Psychological History: No Psychological Hx Reported Smoking Status: Never smoker Past Alcohol Use History: Rare (2 per year) Past Drug Use History: None Reported Additional History: She has been since 1969 and is sexually active. 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 - Past Family History Father Family Medical History: Myocardial Infarction ([place]) Brother(s) Family Medical History: Myocardial Infarction [place]) Additional Family Medical History / Comment(s): Another brother had skin cancer. Medications and Allergies Home Medications Medication Instructions Recorded Confirmed Type Levothyroxine Sodium [Synthroid] 25 mcg PO DAILY 10/30/17 01/09/22 History Multivitamin [Multivitamins Adult 1 tab PO DAILY 10/30/17 01/09/22 History Gummies] Simvastatin 80 mg PO DAILY 10/30/17 01/09/22 History Famotidine [Pepcid] 20 mg PO DAILY 12/29/19 01/09/22 History Calcium Carbonate/Vitamin D3 50 mg PO BID 01/09/22 01/09/22 History [Calcium 250-D Tablet] Allergies Allergy/AdvReac Type Severity Reaction Status Date / Time No Known Allergies Allergy Verified 01/09/22 08:53 Exam Vital Signs Temp Pulse Resp BP Pulse Ox 01/09/22 08:57 98.3 F 69 17 124/80 98 Intake and Output 01/08/22 01/09/22 01/09/22 22:59 06:59 14:59 Other: Weight 77.564 kg Height 5 feet 5 inches, weight 171 pounds, BMI 28.5. This is a well-developed well-nourished white female who is alert and oriented times 3 in no acute distress. HEENT: Within normal limits. NECK: Supple without mass or thyromegaly. CHEST AND LUNGS: Clear to auscultation. HEART: Regular rate and rhythm. BREASTS: Are without mass or discharge. AXILLARY EXAM: Negative for adenopathy. BACK: Negative for CVA tenderness. ABDOMEN: Soft, nontender, without palpable masses. PELVIC EXAM: External genitalia appears normal with mild atrophy. Vagina mucosa appears normal with mild atrophy. There is a grade 2-3 rectocele which is unchanged from her previous exam. There is no other significant prolapse noted. Bimanual examination is negative for mass or tenderness. RECTAL EXAM: Rectovaginal exam is negative for mass or tenderness and is negative for occult blood. EXTREMITIES: Nontender. IMPRESSION: 1. 71-year-old menopausal female status post VIRGIL/BSO for benign reasons with stable grade 2-3 rectocele which is minimally symptomatic. PLAN: 1. Pap smears have been discontinued. 2. Self breast awareness was discussed with the patient. We have also discussed symptoms associated with inflammatory breast cancer. 3. Screening mammogram will be done today. 4. Osteoporosis prevention was discussed. I have stressed the importance of adequate calcium, vitamin D and regular exercise. Recommended amounts of calcium and vitamin D were also discussed. She had a normal bone density test on 10/16/2016. We will repeat the bone density test today. 5. We have had a long discussion regarding her rectocele. This does not seem to be causing her much problems. We have discussed the option of surgical correction. We have discussed pros and cons. We have discussed the possible narrowing of the vagina with this repair. At this time she would like to continue with conservative management. She was instructed to call she's having problems or if she is noticing a bulge outside of the vagina. 6. She has completed her Covid vaccination series and has received 2 boosters. 7. She was advised to return in one year for her annual well woman exam.
--- NOTE | 2022-01-09 11:37 | BD ---
EXAMINATION TYPE: Axial Bone Density DATE OF EXAM: 01/09/2022 COMPARISON: NONE CLINICAL HISTORY: 71 years year old Female. ICD-10 CODE: Z78.0 POSTMENOPAUSAL Height: 64 Weight: 169 FRAX RISK QUESTIONS: Alcohol (3 or more units per day): NO Family History (Parent hip fracture): NO Glucocorticoids (More than 3mos): NO History of Fracture in Adulthood: NO Secondary Osteoporosis: 1. Type 1 Diabetes: NO 2. Hyperthyroidism: NO 3. Menopause before 45: NO 4. Malnutrition: NO 5. Chronic liver disease: NO Rheumatoid Arthritis: NO Current Tobacco Use: NO RISK FACTORS HISTORY OF: Hip Fracture (Right/Left): NO Spine Fracture: NO History of Wrist Fracture: NO Surgery to Spine/Hip(right/left)/Wrist (right/left): NO Family History of Osteoporosis: NO Active: YES Diet low in dairy products/other sources of calcium: YES Postmenopausal woman: YES Take estrogen and/or progesterone medications: NO Lost more than 2 inches in height since high school: NO Frequent falls: NO Poor Health: NO Hyperparathyroidism: NO Adrenal Insufficiency: NO MEDICATIONS: Prednisone or other steroids: NO Thyroid Medications: SYNTHROID How Long: PAST 20 YEARS Osteoporosis Medications: NO Additional Medications: VIT D, CALCIUM, SYNTHROID, SIMVASTATIN, FAMOTIDINE EXAM MEASUREMENTS: Bone mineral densitometry was performed using the [employer] System. Bone mineral density as measured about the Lumbar spine is: ----- L1-L4(G/cm2): 1.185 T Score Values are as follows: ----- L1: -0.3 ----- L2: -0.6 ----- L3: 0.6 ----- L4: 0.2 ----- L1-L4: 0.0 Bone mineral density has: INCREASED 1.2 % since study of: 10/16/2016 Bone mineral density about the R hip (g/cm2): 0.921 Bone mineral density about the L hip (g/cm2): 0.901 T Score values are as follows: -----R Neck: -0.8 -----L Neck: -1.0 -----R Total: -0.3 -----L Total: -0.8 Bone mineral density has: DECREASED 4.3 % since study of: 10/16/2016 FRAX%s: The graph provided illustrates a 8.9% chance for a major osteoporotic fx and a 1.0% chance fo r the hips probability for fx in 10 years time. IMPRESSION: Normal (Values between +1 and -1 indicate normal bone mass). Consider repeating this study in 5 year s or sooner if there is some new clinical indication. NOTE: T-SCORE=SD OF THE YOUNG ADULT MEAN.
--- NOTE | 2022-01-10 19:25 | MM ---
Reason for Exam: Screening (asymptomatic). Last mammogram was performed 1 year(s) and 1 month(s) ago. Patient History: Menarche at age 12. First Full-Term at age 23. Left ovary removed at age 48. Right ovary removed at age 48. Hysterectomy at age 37. Postmenopausal. Other cancer, age 61. Estrogen for 17 years from age 40 until age 57. Patient used Hormonal Contraceptives for 10 years. Risk Values: Kavita 5 year model risk: 1.6%. NCI Lifetime model risk: 4.3%. Prior Study Comparison: 12/29/2019 Bilateral Screening Mammogram, [facility]. 12/31/2019 Right Diagnostic Mammogram, [facility]. 01/03/2021 Bilateral Screening Mammogram, [facility]. Tissue Density: There are scattered fibroglandular densities. Findings: Analyzed By CAD. Benign vascular calcification is present. Small stable nodule is within the inferior right breast. Stable nodule is in the upper outer left breast. No suspicious groups of microcalcifications, spiculated or lobular masses, architectural distortion or other secondary signs of malignancy are mammographically apparent. Overall Assessment: Benign, BI-RAD 2 Management: Screening Mammogram of both breasts in 1 year. A negative mammogram report should not preclude additional follow up of suspicious palpable abnormalities. Patient should continue monthly self breast exam. A clinical breast exam by your physician is recommended on an annual basis and results should be correlated with mammographic findings. Electronically signed and approved by: Pasquale Henderson D.O. Radiologis
== END ==
LOC: WWCWWP 08:47
PROVIDERS: ATTEND Obstetrics & Gynecology
DX: Z01.419 Encounter for gynecological examination (general) (routine) without abnormal findings (principal); Z12.31 Encounter for screening mammogram for malignant neoplasm of breast; Z78.0 Asymptomatic menopausal state; Z90.710 Acquired absence of both cervix and uterus
CPT/HCPCS: 77063; 77067; 77080

== ENCOUNTER 2022-02-09 11:44 | Emergency (ER) | payer MEDICARE ==
[2022-02-09 11:49] VITALS: TEMP 97.9
[2022-02-09] MEDS ORDERED: KETOROLAC 15 MG/ML 1 ML VIAL IVP STA (12:31)
[2022-02-09] MEDS ORDERED: SODIUM CHLORIDE 0.9% 1,000 ML IV STA (12:31)
[2022-02-09] MEDS ORDERED: ONDANSETRON 4 MG/2 ML VIAL IVP STA (12:31)
--- NOTE | 2022-02-09 12:42 | ED ---
General Adult HPI - General Chief complaint: Abdominal Pain Stated complaint: Kidney Stones Time Seen by Provider: 02/09/22 12:13 Source: patient Mode of arrival: ambulatory Limitations: no limitations - History of Present Illness Initial comments: Dictation was produced using Spondo dictation software. please excuse any grammatical, word or spelling errors. Chief Complaint: 72-year-old female presents to the emergency department for left-sided flank pain History of Present Illness: Patient 72-year-old female [facility] emergency [facility] for left-sided flank pain. Patient states that her symptoms began at 9:30 PM. Patient was feeling fine upon waking up this morning. States that all of a sudden while she was cleaning her house she develop severe left-sided flank pain. Patient states that similar to couple months ago which was diagnosed with kidney stone. Patient has any fevers. She states that she does have signifi cant nausea and vomiting. She states that it's almost exactly like the episode she had 2 months ago when she was diagnosed her with a kidney stone. The ROS documented in this emergency department record has been reviewed and confirmed by me. Those systems with pertinent positive or negative responses have been documented in the HPI. All other systems are other negative and/or noncontributory. PHYSICAL EXAM: General Impression: Alert and oriented x3, acute distress sitting to pain and nausea HEENT: Normocephalic atraumatic, extra-ocular movements intact, pupils equal and reactive to light bilaterally, mucous membranes moist. Cardiovascular: Heart regular rate and rhythm Chest: Able to complete full sentences, no retractions, no tachypnea Abdomen: abdomen soft, non-tender, non-distended, no organomegaly Musculoskeletal: Pulses present and equal in all extremities, no peripheral edema, no CVA tenderness Motor: no focal deficits noted Neurological: CN II-XII grossly intact, no focal motor or sensory deficits noted Skin: Intact with no visualized rashes Psych: Normal affect and mood ED course: 72-year-old female presents emergency department for left-sided flank pain acutely. States that her symptoms are exactly like when she was diagnosed with a kidney stone. Previous records were reviewed. Chart review shows that patient was seen here on 12/19/2021 where she is diagnosed with hydroureter and hydronephrosis which was likely secondary to kidney stone. Of note however I did review the images there did not appear to be any stones in the renal calyx of the left kidney. There is concern perhaps that either patient formed a new stone within 2 months or perhaps there is a ureteral obstruction from a mass. Vital signs upon arrival are within acceptable limits. Laboratory evaluation obtained. Mild leukocytosis of 13.8. Coag panel is negative. Metabolic panel is unremarkable. Urinalysis shows 11 red blood cells. Ultrasound of the kidneys, renal and bladder shows no hydronephrosis or nephrolithiasis. Patient observed in emergency department for approximately 5 hours. Reevaluated at bedside at 4:45 PM on the stable medical condition. She reports that her pain is completely resolved. Patient given referral to urology. She strongly encouraged to follow up with urology for outpatient management of kidney stones. - Related Data Home Medications Medication Instructions Recorded Confirmed Levothyroxine Sodium [Synthroid] 25 mcg PO DAILY 10/30/17 01/09/22 Multivitamin [Multivitamins Adult 1 tab PO DAILY 10/30/17 01/09/22 Gummies] Simvastatin 80 mg PO DAILY 10/30/17 01/09/22 Famotidine [Pepcid] 20 mg PO DAILY 12/29/19 01/09/22 Calcium Carbonate/Vitamin D3 50 mg PO BID 01/09/22 01/09/22 [Calcium 250-D Tablet] Allergies Allergy/AdvReac Type Severity Reaction Status Date / Time No Known Allergies Allergy Verified 02/09/22 11:49 Review of Systems ROS Statement: Those systems with pertinent positive or pertinent negative responses have been documented in the HPI. ROS Other: All systems not noted in ROS Statement are negative. Past Medical History Past Medical History: GERD/Reflux, Hyperlipidemia, Thyroid Disorder Additional Past Medical History / Comment(s): Hypothyroidism. 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 Bunion surgery. Colonoscopy 2018(Next after 5yr). Past Psychological History: No Psychological Hx Reported Smoking Status: Never smoker Past Alcohol Use History: Rare Past Drug Use History: None Reported - Past Family History Father Family Medical History: Myocardial Infarction ([place]) Brother(s) Family Medical History: Myocardial Infarction ([place]) Additional Family Medical History / Comment(s): Another brother had skin cancer. General Exam Limitations: no limitations Course Vital Signs 02/09/22 11:47 Temperature 97.9 F Pulse Rate 84 Respiratory 20 Rate Blood Pressure 157/90 O2 Sat by Pulse 98 Oximetry Medical Decision Making - Lab Data Result diagrams: 02/09/22 12:32 02/09/22 12:32 Lab Results 02/09/22 02/09/22 02/09/22 Range/Units 12:32 12:32 12:32 WBC 13.8 H (3.8-10.6) k/uL RBC 4.80 (3.80-5.40) m/uL Hgb 14.4 (11.4-16.0) gm/dL Hct 43.6 (34.0-46.0) % MCV 90.8 (80.0-100.0) fL MCH 30.0 (25.0-35.0) pg MCHC 33.1 (31.0-37.0) g/dL RDW 13.0 (11.5-15.5) % Plt Count 285 (150-450) k/uL MPV 7.8 Neutrophils % 84 % Lymphocytes % 10 % Monocytes % 4 % Eosinophils % 1 % Basophils % 0 % Neutrophils # 11.6 H (1.3-7.7) k/uL Lymphocytes # 1.4 (1.0-4.8) k/uL Monocytes # 0.6 (0-1.0) k/uL Eosinophils # 0.1 (0-0.7) k/uL Basophils # 0.0 (0-0.2) k/uL PT 9.9 (9.0-12.0) sec INR 0.9 (<1.2) APTT 21.1 L (22.0-30.0) sec Sodium 139 (137-145) mmol/L Potassium 4.5 (3.5-5.1) mmol/L Chloride 103 (98-107) mmol/L Carbon Dioxide 28 (22-30) mmol/L Anion Gap 8 mmol/L BUN 17 (7-17) mg/dL Creatinine 1.03 (0.52-1.04) mg/dL Est GFR (CKD-EPI)AfAm 63 (>60 ml/min/1.73 sqM) Est GFR (CKD-EPI)NonAf 55 (>60 ml/min/1.73 sqM) Glucose 121 H (74-99) mg/dL Calcium 9.5 (8.4-10.2) mg/dL Total Bilirubin 0.5 (0.2-1.3) mg/dL AST 24 (14-36) U/L ALT 26 (4-34) U/L Alkaline Phosphatase 88 (38-126) U/L Total Protein 6.9 (6.3-8.2) g/dL Albumin 4.5 (3.5-5.0) g/dL Lipase 92 (23-300) U/L Urine Color Urine Appearance (Clear) Urine pH (5.0-8.0) Ur Specific [place] (1.001-1.035) Urine Protein (Negative) Urine Glucose (UA) (Negative) Urine Ketones (Negative) Urine Blood (Negative) Urine Nitrite (Negative) Urine Bilirubin (Negative) Urine Urobilinogen (<2.0) mg/dL Ur Leukocyte Esterase (Negative) Urine RBC (0-5) /hpf Urine WBC (0-5) /hpf Ur Squamous Epith Cells (0-4) /hpf Hyaline Casts (0-2) /lpf Urine Mucus (None) /hpf 02/09/22 Range/Units 16:06 WBC (3.8-10.6) k/uL RBC (3.80-5.40) m/uL Hgb (11.4-16.0) gm/dL Hct (34.0-46.0) % MCV (80.0-100.0) fL MCH (25.0-35.0) pg MCHC (31.0-37.0) g/dL RDW (11.5-15.5) % Plt Count (150-450) k/uL MPV Neutrophils % % Lymphocytes % % Monocytes % % Eosinophils % % Basophils % % Neutrophils # (1.3-7.7) k/uL Lymphocytes # (1.0-4.8) k/uL Monocytes # (0-1.0) k/uL Eosinophils # (0-0.7) k/uL Basophils # (0-0.2) k/uL PT (9.0-12.0) sec INR (<1.2) APTT (22.0-30.0) sec Sodium (137-145) mmol/L Potassium (3.5-5.1) mmol/L Chloride (98-107) mmol/L Carbon Dioxide (22-30) mmol/L Anion Gap mmol/L BUN (7-17) mg/dL Creatinine (0.52-1.04) mg/dL Est GFR (CKD-EPI)AfAm (>60 ml/min/1.73 sqM) Est GFR (CKD-EPI)NonAf (>60 ml/min/1.73 sqM) Glucose (74-99) mg/dL Calcium (8.4-10.2) mg/dL Total Bilirubin (0.2-1.3) mg/dL AST (14-36) U/L ALT (4-34) U/L Alkaline Phosphatase (38-126) U/L Total Protein (6.3-8.2) g/dL Albumin (3.5-5.0) g/dL Lipase (23-300) U/L Urine Color Yellow Urine Appearance Clear (Clear) Urine pH 5.5 (5.0-8.0) Ur Specific [place] 1.014 (1.001-1.035) Urine Protein Negative (Negative) Urine Glucose (UA) Negative (Negative) Urine Ketones 1+ H (Negative) Urine Blood Moderate H (Negative) Urine Nitrite Negative (Negative) Urine Bilirubin Negative (Negative) Urine Urobilinogen <2.0 (<2.0) mg/dL Ur Leukocyte Esterase Negative (Negative) Urine RBC 11 H (0-5) /hpf Urine WBC 2 (0-5) /hpf Ur Squamous Epith Cells <1 (0-4) /hpf Hyaline Casts 5 H (0-2) /lpf Urine Mucus Rare H (None) /hpf Disposition Clinical Impression: Nephrolithiasis Disposition: HOME SELF-CARE Condition: Good Instructions (If sedation given, give patient instructions): Kidney Stones (ED) Is patient prescribed a controlled substance at d/c from ED?: No Referrals: Paresh Chapman MD [STAFF PHYSICIAN] - 1-2 days Time of Disposition: 16:53
[2022-02-09 12:47] LABS: Basophils % (A) 0 %; Eosinophils # (A) 0.1 k/uL (0-0.7); Eosinophils % (A) 1 %; HCT 43.6 % (34.0-46.0); HGB 14.4 gm/dL (11.4-16.0); Lymphocytes # (A) 1.4 k/uL (1.0-4.8); Lymphocytes % (A) 10 %; MCHC 33.1 g/dL (31.0-37.0); MCV 90.8 fL (80.0-100.0); Mean Platelet Volume 7.8; Monocytes # (A) 0.6 k/uL (0-1.0); Monocytes % (A) 4 %; Neutrophils # (A) 11.6 k/uL (1.3-7.7); Neutrophils % (A) 84 %; Platelet Count 285 k/uL (150-450); WBC 13.8 k/uL (3.8-10.6)
[2022-02-09 13:05] LABS: INR 0.9 (<1.2); Prothrombin Time 9.9 sec (9.0-12.0)
[2022-02-09 13:08] LABS: Albumin 4.5 g/dL (3.5-5.0); Calcium 9.5 mg/dL (8.4-10.2); Potassium 4.5 mmol/L (3.5-5.1); Total Bilirubin 0.5 mg/dL (0.2-1.3); Total Protein 6.9 g/dL (6.3-8.2)
[2022-02-09 13:25] LABS: Partial Thromboplastin Time 21.1 sec (22.0-30.0)
--- NOTE | 2022-02-09 14:52 | US ---
EXAMINATION TYPE: US kidneys/renal and bladder DATE OF EXAM: 02/09/2022 COMPARISON: NONE CLINICAL HISTORY: flank pain. left flank pain EXAM MEASUREMENTS: Right Kidney: 9.1 x 4.3 x 3.6 cm Left Kidney: 9.7 x 5.2 x 4.3 cm technical limitations due to large amount of overlying bowel content Right Kidney: no evidence of hydronephrosis Left Kidney: no evidence of hydronephrosis Bladder: not fully distended and therefore limited. Bilateral Jets seen: no IMPRESSION: No hydronephrosis or nephrolithiasis.
[2022-02-09 16:37] LABS: Appearance,Urine Clear (Clear); Bilirubin,Urine Negative (Negative); Blood,Urine Moderate (Negative); Color,Urine Yellow; Glucose,Urine (UA) Negative (Negative); Hyaline Casts,Urine 5 /lpf (0-2); Ketones,Urine 1+ (Negative); Leukocyte Esterase,Urine Negative (Negative); Mucus,Urine Rare /hpf; Nitrite,Urine Negative (Negative); PH, Urine 5.5 (5.0-8.0); Protein,Urine Negative (Negative); RBC,Urine 11 /hpf (0-5); Specific Gravity,Urine 1.014 (1.001-1.035); Squamous Epithelial Cell,Urine <1 /hpf (0-4); Urobilinogen,Urine <2.0 mg/dL (<2.0); WBC,Urine 2 /hpf (0-5)
[2022-02-09] MEDS ORDERED: ONDANSETRON 4 MG ODT STARTER PACK 2 TAB BTL PO STA (16:53)
[2022-02-09 17:14] VITALS: BP 121/68; PULSE 81; RESP 16
== END 2022-02-09 17:15 | disposition home or self-care (01) ==
LOC: EC 11:44
DX: N20.0 Calculus of kidney (principal); K21.9 Gastro-esophageal reflux disease without esophagitis; E78.5 Hyperlipidemia, unspecified; E07.9 Disorder of thyroid, unspecified; Z79.890 Hormone replacement therapy
CPT/HCPCS: 36415; 80053; 83690; 85025; 85610; 85730; 81001; 76770; 99284; 96375; 96374; 96361 ×4; J2405; J1885; S0119

== ENCOUNTER → 2022-03-02 | Outpatient (CLI) | payer MEDICARE ==
--- NOTE | 2022-03-02 16:25 | CT ---
EXAMINATION TYPE: CT urogram wo/w con DATE OF EXAM: 03/02/2022 COMPARISON: 12/20/2019 HISTORY: 72-year-old female R31.1, BENIGN ESSENTIAL MICROSCOPIC HEMATURIA TECHNIQUE: Contiguous axial scanning of the abdomen and pelvis performed without and with IV Contrast , patient injected with 70 mL of Isovue 300. Delayed images through the kidneys and bladder were obta ined. Coronal/sagittal reconstructions performed. 3D reconstructions generated on a dedicated [employer] workstation. CT DLP: 3556 mGycm Automated exposure control for dose reduction was used. FINDINGS: Heart is normal size with trace anterior basilar pericardial fluid. Lung bases clear without pleural effusion. Small hiatal hernia. This appears to be a sliding hiatal hernia as it was slightly larger on the rece nt prior. Multiple hepatic cysts are present measuring up to 2.8 cm. Some focal fat along the anterior falcifor m ligament. Portal venous system is patent. No biliary ductal dilatation. Gallbladder, adrenal glands, right kidney, spleen, and pancreas within normal limits. Small 1.5 cm di verticulum from the second portion of the duodenum projecting into the pancreatic head region. No nephrolithiasis. There is an extra renal pelvis on the left. There are a small parapelvic cy sts within the left kidney measuring up to 1.4 cm. No suspicious renal mass on either side. The 1.4 cm left-sided parapelvic cyst has some mass effect with slight indentation onto the posterior and inferior wall of the left renal pelvis. However, no suspicious filling defect is seen within the collecting system itself or along either ureter. No dilated small bowel, free fluid, free air. No mesenteric or retroperitoneal lymphadenopathy. Mild stool burden. Normal appendix. Sigmoid diverticulosis. No pericolonic inflammatory change. Bladder is collapsed. There appears to be mild circumference of wall thickening. This could be due to the nondi stention. Uterus surgically absent. Neither ovary is visualized. No abnormal fluid collection in the pelvis or pelvic lymphadenopathy. Diffuse pelvic phlebolith are noted. Bones: Mild degenerative change of the hips. Moderate degenerative disc disease L4-L5. Some facet art hropathy lower lumbar spine. IMPRESSION: 1. NO NEPHROLITHIASIS OR SUSPICIOUS RENAL MASS. A FEW SMALL PARAPELVIC CYSTS WITHIN THE LEFT KIDNEY M EASURING UP TO 1.4 CM. NO SUSPICIOUS FILLING DEFECT WITHIN THE RENAL COLLECTING SYSTEMS OR URETERS. 2. COLLAPSED BLADDER LIMITING EVALUATION. THERE APPEARS TO BE MILD CIRCUMFERENTIAL WALL THICKENING WH ICH COULD BE DUE TO THE NONDISTENTION OR CYSTITIS. CLINICALLY CORRELATE. 3. INCIDENTAL: SMALL SLIDING HIATAL HERNIA AND SIGMOID DIVERTICULOSIS.
== END | disposition home or self-care (01) ==
LOC: RADCTMAIN 14:20
PROVIDERS: ATTEND Urology
DX: N28.1 Cyst of kidney, acquired (principal); N32.89 Other specified disorders of bladder; K44.9 Diaphragmatic hernia without obstruction or gangrene; K57.30 Diverticulosis of large intestine without perforation or abscess without bleeding; R31.1 Benign essential microscopic hematuria
CPT/HCPCS: 82565; 84520; 74178; 36415; 74400; Q9967

== ENCOUNTER → 2022-03-07 | Outpatient (CLI) | payer MEDICARE ==
--- NOTE | 2022-03-07 09:16 | US ---
EXAMINATION TYPE: US liver DATE OF EXAM: 03/07/2022 COMPARISON: CLINICAL HISTORY: K76.89 LIVER CYST. Liver cyst seen on other imaging modality TECHNIQUE: Multiple sonographic images of the right upper quadrant are obtained. FINDINGS: EXAM MEASUREMENTS: Liver Length: 14.2 cm Gallbladder Wall: 0.1 cm CBD: 0.3 cm Right Kidney: 9.2 x 4.6 x 4.4 cm Pancreas: wnl Liver: multiple simple cysts seen in left lobe with largest visualized anteriorly = 2.8 x 2.6 x 2.6 cm Gallbladder: Folds seen Evidence for sonographic Harris's sign: neg CBD: wnl Right Kidney: No hydronephrosis or masses seen IMPRESSION: Simple hepatic cysts.
== END | disposition home or self-care (01) ==
LOC: RADUSWWP 07:53
PROVIDERS: ATTEND Family Medicine
DX: K76.89 Other specified diseases of liver (principal)
CPT/HCPCS: 76705

== ENCOUNTER → 2022-11-05 | Outpatient (CLI) | payer MEDICARE ==
--- NOTE | 2022-11-05 14:34 | XR ---
EXAMINATION TYPE: XR chest 2V DATE OF EXAM: 11/05/2022 2:25 PM COMPARISON: 06/01/2022 and 06/25/2022 TECHNIQUE: XR chest 2V Frontal and lateral views of the chest. CLINICAL INDICATION:Female, 72 years old with history of C64.2 MALIGNANT NEOPLASM OF LEFT KIDNEY; FINDINGS: Lungs/Pleura: There is no evidence of pleural effusion, focal consolidation, or pneumothorax. Pulmonary vascularity: Unremarkable. Heart/mediastinum: Cardiomediastinal silhouette is unremarkable. Musculoskeletal: No acute osseous pathology. IMPRESSION: No acute cardiopulmonary disease/process.
[2022-11-05 14:37] LABS: African American GFR (CKD) 34 (>60 ml/min/1.73 sqM); Blood Urea Nitrogen 34 mg/dL (7-17); Non-African American GFR(CKD) 29 (>60 ml/min/1.73 sqM)
== END | disposition home or self-care (01) ==
LOC: RADCTMAIN 13:57
PROVIDERS: ATTEND Urology
DX: C64.2 Malignant neoplasm of left kidney, except renal pelvis (principal)
CPT/HCPCS: 71046; 82565; 84520

== ENCOUNTER → 2022-11-27 | Outpatient (CLI) | payer MEDICARE ==
[2022-11-27 21:02] LABS: Blood Urea Nitrogen 17.8 mg/dL (9.0-27.0)
== END | disposition home or self-care (01) ==
LOC: LABWHC1 12:58
PROVIDERS: ATTEND Urology
DX: C64.9 Malignant neoplasm of unspecified kidney, except renal pelvis (principal)
CPT/HCPCS: 36415; 82565; 84520

== ENCOUNTER → 2022-11-27 | Outpatient (CLI) | payer MEDICARE ==
--- NOTE | 2022-11-27 15:44 | US ---
EXAMINATION TYPE: US venous doppler duplex LE LT DATE OF EXAM: 11/27/2022 3:23 PM COMPARISON: 06/01/22 CLINICAL INDICATION: Female, 72 years old with history of I82.492,I26.99; Hx of LT DVT after surgery, has been on blood thinners x 6 months SIDE PERFORMED: Left TECHNIQUE: The lower extremity deep venous system is examined utilizing real time linear array sonog jose daniel with graded compression, doppler sonography and color-flow sonography. VESSELS IMAGED: Common Femoral Vein Deep Femoral Vein Greater Saphenous Vein * Femoral Vein Popliteal Vein Small Saphenous Vein * Proximal Calf Veins (* superficial vessels) Left Leg: Negative for DVT roleaux formation noted in left popliteal vein, slow flow but no evidence of DVT IMPRESSION: No evidence of acute DVT. There is near complete resolution of previously described popl iteal venous thrombosis. Very minimal residual chronic DVT not excluded
== END | disposition home or self-care (01) ==
LOC: RADUSWWP 13:59
PROVIDERS: ATTEND Internal Medicine Hematology & Oncology
DX: C65.9 Malignant neoplasm of unspecified renal pelvis (principal); I26.99 Other pulmonary embolism without acute cor pulmonale; I82.492 Acute embolism and thrombosis of other specified deep vein of left lower extremity; E78.5 Hyperlipidemia, unspecified; Z79.01 Long term (current) use of anticoagulants; Z86.718 Personal history of other venous thrombosis and embolism

== ENCOUNTER → 2023-01-16 | Outpatient (CLI) | payer MEDICARE ==
[2023-01-16 12:34] LABS: Appearance,Urine Clear (Clear); Bilirubin,Urine Negative (Negative); Blood,Urine Small (Negative); Color,Urine Colorless; Glucose,Urine (UA) Negative (Negative); Ketones,Urine Negative (Negative); Leukocyte Esterase,Urine Small (Negative); Nitrite,Urine Negative (Negative); Protein,Urine Negative (Negative); RBC,Urine 4 /hpf (0-5); Specific Gravity,Urine 1.006 (1.001-1.035); Squamous Epithelial Cell,Urine 1 /hpf (0-4); Urobilinogen,Urine <2.0 mg/dL (<2.0); WBC,Urine 5 /hpf (0-5)
[2023-01-16 15:38] LABS: Basophils # (A) 0.04 X 10*3/uL (0.00-0.10); Basophils % (A) 0.6 %; Eosinophils # (A) 0.16 X 10*3/uL (0.04-0.35); Eosinophils % (A) 2.4 %; HCT 42.7 % (37.2-46.3); HGB 13.7 d/dL (12.0-15.0); Lymphocytes # (A) 2.14 X 10*3/uL (0.90-5.00); Lymphocytes % (A) 32.7 %; MCH 29.4 pg (27.0-32.0); MCHC 32.1 d/dL (32.0-37.0); MCV 91.6 FL (80.0-97.0); Mean Platelet Volume 9.7 FL (9.5-12.2); Monocytes # (A) 0.46 X 10*3/uL (0.20-1.00); NRBC Per 100 WBC 0 X 10*3/uL (0.00-0.01); Neutrophils # (A) 3.73 X 10*3/uL (1.80-7.70); Platelet Count 298 X 10*3/uL (140-440); RBC 4.66 X 10*6/uL (4.10-5.20); RDW 13.6 % (11.5-14.5); WBC 6.55 X 10*3/uL (4.50-10.00)
[2023-01-16 16:19] LABS: ALT 20 U/L (8-44); AST 20 U/L (13-35); Albumin 4.2 d/dL (3.8-4.9); Albumin/Globulin Ratio 1.75 Ratio (1.60-3.17); Alkaline Phosphatase 96 U/L (41-126); BUN/Creat Ratio 18.31 Ratio (12.00-20.00); Blood Urea Nitrogen 23.8 mg/dL (9.0-27.0); Carbon Dioxide 27.3 mmol/L (21.6-31.8); Chloride 106 mmol/L (96-109); Globulin 2.4 d/dL (1.6-3.3); Glucose 91 mg/dL (70-110); Phosphorus 3.2 mg/dL (2.4-5.1); Potassium 4.6 mmol/L (3.5-5.5); Sodium 143 mmol/L (135-145); Total Bilirubin 0.3 mg/dL (0.3-1.2); Total Protein 6.6 d/dL (6.2-8.2)
== END | disposition home or self-care (01) ==
LOC: LABWHC1 09:51
PROVIDERS: ATTEND Urology
DX: N18.9 Chronic kidney disease, unspecified (principal)
CPT/HCPCS: 36415; 80053; 81001; 84100; 85025

== ENCOUNTER → 2023-03-14 | Outpatient (CLI) | payer MEDICARE ==
[2023-03-15 02:09] LABS: Immunoglobulin M 37.2 mg/dL (40.0-280.0)
[2023-03-15 02:29] LABS: % Iron Saturation 15.41 (12.00-45.00); Albumin 4.5 g/dL (3.8-4.9); BUN/Creat Ratio 17.57 Ratio (12.00-20.00); Blood Urea Nitrogen 24.6 mg/dL (9.0-27.0); Carbon Dioxide 26.9 mmol/L (21.6-31.8); Chloride 103 mmol/L (96-109); Glucose 85 mg/dL (70-110); Iron 53 UG/DL (50-170); Potassium 4.6 mmol/L (3.5-5.5); Sodium 141 mmol/L (135-145); Total Iron Binding Capacity 344 UG/DL (228-460); Uric Acid 5.7 mg/dL (2.9-7.7)
[2023-03-15 02:57] LABS: Basophils # (A) 0.04 X 10*3/uL (0.00-0.10); Basophils % (A) 0.4 %; Eosinophils # (A) 0.14 X 10*3/uL (0.04-0.35); Eosinophils % (A) 1.5 %; HCT 44.2 % (37.2-46.3); HGB 13.8 g/dL (12.0-15.0); Lymphocytes # (A) 2.61 X 10*3/uL (0.90-5.00); Lymphocytes % (A) 28.2 %; MCH 29.2 pg (27.0-32.0); MCHC 31.2 g/dL (32.0-37.0); MCV 93.4 FL (80.0-97.0); Mean Platelet Volume 9.8 FL (9.5-12.2); Monocytes # (A) 0.59 X 10*3/uL (0.20-1.00); Monocytes % (A) 6.4 %; NRBC Per 100 WBC 0 X 10*3/uL (0.00-0.01); Neutrophils # (A) 5.82 X 10*3/uL (1.80-7.70); Neutrophils % (A) 63.1 %; Platelet Count 324 X 10*3/uL (140-440); RBC 4.73 X 10*6/uL (4.10-5.20); RDW 13.7 % (11.5-14.5); WBC 9.24 X 10*3/uL (4.50-10.00)
[2023-03-15 03:20] LABS: Magnesium 2.2 mg/dL (1.5-2.4); Phosphorus 3.4 mg/dL (2.4-5.1)
[2023-03-15 05:16] LABS: Appearance,Urine Clear (Clear); Bilirubin,Urine Negative (Negative); Blood,Urine Small (Negative); Color,Urine Yellow (Yellow); Ketones,Urine Negative (Negative); Nitrite,Urine Negative (Negative); PH, Urine 5.5; Specific Gravity,Urine 1.011 (1.001-1.030); Urobilinogen,Urine 0.2 E.U./DL
[2023-03-15 05:58] LABS: Urine Creatinine 49.5 mg/dL (28.0-217.0)
[2023-03-15 06:05] LABS: Bacteria,Urine None Seen (None Seen)
[2023-03-15 11:58] LABS: Free Kappa Lt Chain Qnt, Urine 1.28 mg/dL (0.00-3.29); Free Lambda Lt Chain Qt, Urine 0.2 mg/dL (0.00-0.38)
== END | disposition home or self-care (01) ==
LOC: LABWHC1 15:19
PROVIDERS: ATTEND Internal Medicine Nephrology
DX: E55.9 Vitamin D deficiency, unspecified (principal); N25.81 Secondary hyperparathyroidism of renal origin; M10.9 Gout, unspecified; N39.0 Urinary tract infection, site not specified; D63.1 Anemia in chronic kidney disease; N18.4 Chronic kidney disease, stage 4 (severe); R80.9 Proteinuria, unspecified
CPT/HCPCS: 36415; 80048; 81001; 82040; 82043; 82306; 82570; 82728; 83540; 83550; 83735; 83883; 83970; 84100; 84550; 85025; 86334; 86335

== ENCOUNTER 2024-03-02 19:41 | Emergency (ER) | payer MEDICARE ==
[2024-03-02 20:09] VITALS: TEMP 98.4
[2024-03-02] MEDS: PHENAZOPYRIDINE 200 MG TAB PO STA (20:38)
[2024-03-02 20:59] LABS: Appearance,Urine Clear (Clear); Bilirubin,Urine 1+ (Negative); Blood,Urine Moderate (Negative); Color,Urine Dark Brown; Glucose,Urine (UA) Negative (Negative); Ketones,Urine Negative (Negative); Leukocyte Esterase,Urine Negative (Negative); Nitrite,Urine Positive (Negative); PH, Urine 5.5 (5.0-8.0); Protein,Urine Trace (Negative); RBC,Urine 147 /hpf (0-5); Specific Gravity,Urine 1.009 (1.001-1.035); Squamous Epithelial Cell,Urine 1 /hpf (0-4); WBC,Urine 6 /hpf (0-5)
--- NOTE | 2024-03-02 21:28 | ED ---
General Adult HPI - General Chief complaint: Skin/Abscess/Foreign Body Stated complaint: urinary burning-Bladder Cancer Time Seen by Provider: 03/02/24 20:11 Source: patient Mode of arrival: ambulatory Limitations: no limitations - History of Present Illness Initial comments: 74-year-old female with bladder cancer currently receiving BCG treatments presenting with chief complaint of dysuria. Patient reports that she has had severe dysuria and burning sensation in the bladder while receiving these treatments. She states it is difficult to relax her muscles and off to urinate because of the pain. She has mentioned this to her urologist. She is currently taking [id number] Azo which she does not believe is helping. She has also taken Tylenol 3 and tramadol which are minimally helpful. No fevers. No nausea or vomiting. She is also currently on Cipro prescribed by her urologist Dr. Chapman - Related Data Home Medications Medication Instructions Recorded Confirmed Levothyroxine Sodium [Synthroid] 25 mcg PO DAILY 10/30/17 01/22/23 Simvastatin 80 mg PO DAILY 10/30/17 01/22/23 Famotidine [Pepcid] 20 mg PO DAILY 12/29/19 01/22/23 Previous Rx's Medication Instructions Recorded Apixaban [Eliquis] 5 mg PO DIRECTED #74 tablet 06/02/22 Ondansetron Odt [Zofran Odt] 4 mg PO Q8HR PRN #30 tab 03/02/24 traMADol HCL 50 mg PO Q6H PRN 3 Days #12 tab 03/02/24 Allergies Allergy/AdvReac Type Severity Reaction Status Date / Time No Known Allergies Allergy Verified 03/02/24 20:09 Review of Systems ROS Statement: Those systems with pertinent positive or pertinent negative responses have been documented in the HPI. ROS Other: All systems not noted in ROS Statement are negative. Past Medical History Past Medical History: Cancer, GERD/Reflux, Hyperlipidemia, Thyroid Disorder Additional Past Medical History / Comment(s): Left renal cancer with bladder cancer 2021. Kidney stones. Hypothyroidism. 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 History of Any Multi-Drug Resistant Organisms: None Reported Past Surgical History: Hysterectomy Additional Past Surgical History / Comment(s): VIRGIL in 1988 and BSO in 1997. Bunion surgery. Colonoscopy 2018(Next after 5yr). Kidney tumor bx, left nephrectomy 05/24/22 . Cystoscopy. Past Anesthesia/Blood Transfusion Reactions: No Reported Reaction Additional Past Anesthesia/Blood Transfusion Reaction / Comment(s): no hx blood transfusion Past Psychological History: No Psychological Hx Reported Smoking Status: Never smoker Past Alcohol Use History: None Reported Past Drug Use History: None Reported - Past Family History Father Family Medical History: Myocardial Infarction ([place]) Brother(s) Family Medical History: Myocardial Infarction ([place]) Additional Family Medical History / Comment(s): Another brother had skin cancer. General Exam Limitations: no limitations General appearance: alert, in no apparent distress Head exam: Present: atraumatic, normocephalic, normal inspection Eye exam: Present: normal appearance, EOMI Neck exam: Present: normal inspection. Absent: meningismus Respiratory exam: Absent: respiratory distress Neurological exam: Present: alert, oriented X3 Psychiatric exam: Present: normal affect, normal mood Skin exam: Present: warm, dry Course Vital Signs 03/02/24 20:05 Temperature 98.4 F Pulse Rate 117 H Respiratory 18 Rate Blood Pressure 151/71 O2 Sat by Pulse 95 Oximetry Medical Decision Making - Medical Decision Making Was pt. sent in by a medical professional or institution (Dr. PA, TABLE WORKER PACKAGER, urgent care, hospital, or long-term...) When possible be specific @ -No Did you speak to anyone other than the patient for history (EMS, parent, family, police, friend...)? What history was obtained from this source @ -No Did you review nursing and triage notes (agree or disagree)? Why? @ -I reviewed and agree with nursing and triage notes Were old charts reviewed (outside hosp., previous admission, EMS record, old EKG, old radiological studies, urgent care reports/EKG's, long-term records)? Report findings @ -No old charts were reviewed Differential Diagnosis (chest pain, altered mental status, abdominal pain women, abdominal pain men, vaginal bleeding, weakness, fever, dyspnea, syncope, headach e, dizziness, GI bleed, back pain, seizure, CVA, palpatations, mental health, musculoskeletal)? @ -Differential includes UTI, dysuria related to treatment, this is not an all- inclusive list EKG interpreted by me (3pts min.). @ -As above X-rays interpreted by me (1pt min.). @ -None done CT interpreted by me (1pt min.). @ -None done U/S interpreted by me (1pt. min.). @ -None done What testing was considered but not performed or refused? (CT, X-rays, U/S, labs)? Why? @ -None What meds were considered but not given or refused? Why? @ -None Did you discuss the management of the patient with other professionals (professionals i.e. DrBlanka, PA, TABLE WORKER PACKAGER, lab, RT, psych nurse, transition social worker, community center coordinator, teacher, chief legal officer, briefcase sewer)? Give summary @ -No Was smoking cessation discussed for >3mins.? @ -No Was critical care preformed (if so, how long)? @ -No Were there social determinants of health that impacted care today? How? (Homelessness, low income, unemployed, alcoholism, drug addiction, transportation, low edu. Level, literacy, decrease access to med. care, fpc, rehab)? @ -No Was there de-escalation of care discussed even if they declined (Discuss DNR or withdrawal of care, Hospice)? DNR status @ -No What co-morbidities impacted this encounter? (DM, HTN, Smoking, COPD, CAD, Cancer, CVA, ARF, Chemo, Hep., AIDS, mental health diagnosis, sleep apnea, morbid obesity)? @ -None Was patient admitted / discharged? Hospital course, mention meds given and route, prescriptions, significant lab abnormalities, going to OR and other pertinent info. @ -74-year-old female presenting with chief complaint of dysuria related to her BCG treatment for bladder cancer. Patient is currently on [id number] Pyridium. She is also on Cipro. History and physical examination are condu cted. Urine shows positive nitrates and is dark brown in color, consistent with Pyridium use. Patient is also already on antibiotics, will not change course at this time. Patient was given a dose of Pyridium here in the ER. Patient has taken tramadol in the past for pain which is somewhat helpful, given that she has limited options for pain control at home at this time refill of tramadol is sent and patient will follow-up with her urologist. Discharged. Follow-up with PCP. Report back to ER with any new or worsening symptoms. Discussed return parameters and answered all questions. Patient conveyed verbal understanding and agreed to the plan. I discussed this case in detail with my attending Dr. Doll Undiagnosed new problem with uncertain prognosis? @ -No Drug Therapy requiring intensive monitoring for toxicity (Heparin, Nitro, Insulin, Cardizem)? @ -No Were any procedures done? @ -No Diagnosis/symptom? @ -Dysuria Acute, or Chronic, or Acute on Chronic? @ -Acute Uncomplicated (without systemic symptoms) or Complicated (systemic symptoms)? @ -Uncomplicated Side effects of treatment? @ -No Exacerbation, Progression, or Severe Exacerbation? @ -No Poses a threat to life or bodily function? How? (Chest pain, [place], [place], pneumonia, PE, COPD, DKA, ARF, appy, cholecystitis, CVA, Diverticulitis, Homicidal, Suicidal, threat to staff... and all critical care pts) @ -Low likelihood - Lab Data Lab Results 03/02/24 Range/Units 20:43 Urine Color Dark Brown Urine Appearance Clear (Clear) Urine pH 5.5 (5.0-8.0) Ur Specific [place] 1.009 (1.001-1.035) Urine Protein Trace H (Negative) Urine Glucose (UA) Negative (Negative) Urine Ketones Negative (Negative) Urine Blood Moderate H (Negative) Urine Nitrite Positive H (Negative) Urine Bilirubin 1+ H (Negative) Urine Urobilinogen 2.0 (<2.0) mg/dL Ur Leukocyte Esterase Negative (Negative) Urine RBC 147 H (0-5) /hpf Urine WBC 6 H (0-5) /hpf Ur Squamous Epith Cells 1 (0-4) /hpf Disposition Clinical Impression: Dysuria Disposition: HOME SELF-CARE Condition: Good Instructions (If sedation given, give patient instructions): Dysuria (ED) Additional Instructions: Follow-up with your urologist. Report back to ER with any new or worsening symptoms. Prescriptions: traMADol HCL 50 mg PO Q6H PRN 3 Days #12 tab PRN Reason: Pain Ondansetron Odt [Zofran Odt] 4 mg PO Q8HR PRN #30 tab PRN Reason: Nausea Is patient prescribed a controlled substance at d/c from ED?: Yes When asked, does pt state using other controlled substances?: No If prescribed controlled substance>3 days was MAPS reviewed?: Prescribed <3 Days If opioid is for acute pain is fill amount 7 days or less?: Yes Referrals: Weston Chau MD [Primary Care Provider] - 1-2 days Paresh Chapman MD [STAFF PHYSICIAN] - 1-2 days
[2024-03-02] MEDS: MORPHINE SULFATE 2 MG/ML SYRINGE IM STA (21:36)
[2024-03-02] MEDS: ONDANSETRON ODT 4 MG TAB PO STA (21:36)
[2024-03-02 21:51] VITALS: BP 107/75; PULSE 91; RESP 16
== END 2024-03-02 22:09 | disposition home or self-care (01) ==
LOC: EC 19:41
DX: R30.0 Dysuria (principal)
CPT/HCPCS: 81001; 99283; 96372; J2270

== ENCOUNTER → 2024-04-14 | Outpatient (CLI) | payer MEDICARE ==
--- NOTE | 2024-04-14 14:55 | CT ---
EXAMINATION TYPE: CT abdomen pelvis wo con DATE OF EXAM: 04/14/2024 HISTORY: bladder ca, pelvic pain CT DLP: 511 mGycm. Automated Exposure Control for Dose Reduction was Utilized. TECHNIQUE: CT scan of the abdomen and pelvis is performed without oral or IV contrast. COMPARISON: Prior CT December 19, 2021 FINDINGS: Within the limitations of a non-contrast study, the following observations are made. LUNG BASES: No significant abnormality is appreciated. LIVER/GB: A few scattered simple appearing thin-walled cysts throughout the liver most prominent in t he left hepatic lobe are redemonstrated. PANCREAS: No significant abnormality is seen. SPLEEN: No significant abnormality is seen. ADRENALS: No significant abnormality is seen. KIDNEYS: Left kidney is now surgically absent. No right-sided renal calculus or hydronephrosis. Bladd er poorly distended without intraluminal calculus. There is mild wall thickening with mild to moderat e ill-defined fluid along the peripheral margin. BOWEL: Sigmoid colonic diverticulosis is redemonstrated. No CT evidence for acute diverticulitis. No abnormal small or large bowel dilatation. Appendix within normal limits from base of cecum. GENITAL ORGANS: Uterus remains surgically absent. Possible remnant left ovary axial image 124 versus new sinus tract from the diverticulum into the left pelvis or new scar tissue along the course of the distal left ureter. LYMPH NODES: No greater than 1cm abdominal or pelvic lymph nodes are appreciated. OSSEOUS STRUCTURES: Mild disc space narrowing and spurring at L4-L5 level. Multilevel facet arthropat hy in the lower lumbar spine. OTHER: There is new vertical oriented scar anterior midline from the umbilicus extending inferiorly. IMPRESSION: Irregular wall thickening to the urinary bladder. Consider acute bladder infection. Corre late clinically and with urine lab values. Interval removal of left kidney. No obvious new mass or ad enopathy to suggest neoplastic recurrence on noncontrast CT. [facility], , 04/14/2024 2:53 PM
== END | disposition home or self-care (01) ==
LOC: RADCTMAIN 11:00
PROVIDERS: ATTEND Urology
DX: C64.2 Malignant neoplasm of left kidney, except renal pelvis (principal); N30.00 Acute cystitis without hematuria
CPT/HCPCS: 74176

== ENCOUNTER → 2024-04-14 | Outpatient (CLI) | payer MEDICARE ==
[2024-04-14 15:49] LABS: Basophils # (A) 0.04 X 10*3/uL (0.00-0.10); Basophils % (A) 0.5 %; Eosinophils # (A) 0.12 X 10*3/uL (0.04-0.35); Eosinophils % (A) 1.5 %; HCT 42.1 % (37.2-46.3); HGB 13.2 g/dL (12.0-15.0); Lymphocytes # (A) 1.98 X 10*3/uL (0.90-5.00); MCH 28.9 pg (27.0-32.0); MCHC 31.4 g/dL (32.0-37.0); MCV 92.3 FL (80.0-97.0); Mean Platelet Volume 9.5 FL (9.5-12.2); Monocytes % (A) 6.3 %; NRBC Per 100 WBC 0 X 10*3/uL (0.00-0.01); Neutrophils # (A) 5.26 X 10*3/uL (1.80-7.70); Neutrophils % (A) 66.4 %; Platelet Count 414 X 10*3/uL (140-440); RBC 4.56 X 10*6/uL (4.10-5.20); RDW 13.4 % (11.5-14.5); WBC 7.92 X 10*3/uL (4.50-10.00)
[2024-04-14 16:19] LABS: Magnesium 2.1 mg/dL (1.5-2.4)
[2024-04-14 16:20] LABS: % Iron Saturation 21.03 (12.00-45.00); Blood Urea Nitrogen 13.8 mg/dL (9.0-27.0); Calcium 9.8 mg/dL (8.7-10.3); Carbon Dioxide 28.4 mmol/L (21.6-31.8); Chloride 105 mmol/L (96-109); Glucose 93 mg/dL (70-110); Iron 61 UG/DL (50-170); Phosphorus 3.5 mg/dL (2.4-5.1); Potassium 4.6 mmol/L (3.5-5.5); Sodium 144 mmol/L (135-145); Total Iron Binding Capacity 290 UG/DL (228-460); Uric Acid 5.2 mg/dL (2.9-7.7)
[2024-04-14 16:35] LABS: Appearance,Urine Clear (Clear); Bilirubin,Urine Negative (Negative); Blood,Urine Negative (Negative); Color,Urine Yellow (Yellow); Ketones,Urine Negative (Negative); Nitrite,Urine Negative (Negative); Specific Gravity,Urine 1.007 (1.001-1.030); Urobilinogen,Urine 0.2 E.U./DL
[2024-04-14 16:52] LABS: Bacteria,Urine None Seen (None Seen)
[2024-04-14 20:23] LABS: Urine Creatinine 32.5 mg/dL (28.0-217.0)
== END | disposition home or self-care (01) ==
LOC: LABWHC1 10:29
PROVIDERS: ATTEND Internal Medicine Nephrology
DX: N18.4 Chronic kidney disease, stage 4 (severe) (principal); D63.1 Anemia in chronic kidney disease; E55.9 Vitamin D deficiency, unspecified; N25.81 Secondary hyperparathyroidism of renal origin; M10.9 Gout, unspecified; N39.0 Urinary tract infection, site not specified; R80.9 Proteinuria, unspecified
CPT/HCPCS: 36415; 80048; 81001; 82040; 82043; 82306; 82570; 82728; 83540; 83550; 83735; 83970; 84100; 84550; 85025

== ENCOUNTER → 2024-07-22 | Outpatient (CLI) | payer MEDICARE ==
--- NOTE | 2024-07-22 15:35 | MM ---
Reason for Exam: Screening (asymptomatic). Last mammogram was performed 1 year(s) and 6 month(s) ago. Patient History: Menarche at age 12. First Full-Term at age 23. Left ovary removed at age 48. Right ovary removed at age 48. Hysterectomy at age 37. Postmenopausal. Other cancer, age 61. Estrogen for 17 years from age 40 until age 57. Patient used Hormonal Contraceptives for 10 years. Risk Values: Kavita 5 year model risk: 1.6%. NCI Lifetime model risk: 3.7%. Prior Study Comparison: 01/03/2021 Bilateral Screening Mammogram, [facility]. 01/09/2022 Bilateral MG 3D screening mammo w/cad, [facility]. 01/22/2023 Bilateral MG 3D screening mammo w/cad, [facility]. Tissue Density: The breasts are heterogeneously dense, which may obscure small masses. Findings: Analyzed By CAD. There is no suspicious group of microcalcifications or new suspicious mass in either breast. Overall Assessment: Negative, BI-RAD 1 Management: Screening Mammogram of both breasts in 1 year. . Patient should continue monthly self-breast exams. A clinical breast exam by your physician is recommended on an annual basis. This exam should not preclude additional follow-up of suspicious palpable abnormalities. Note on Kavita scores and lifetime risk: 1. A Kavita score greater than 3% is considered moderate risk. If this is the case, consider specialist referral to assess eligibility for a risk reducing agent. 2. If overall lifetime risk for the development of breast cancer is 20% or higher, the patient may qualify for future screening with alternating mammogram and breast MRI. [facility], , 07/22/2024 3:32 PM. Electronically signed and approved by: Suresh Perez M.D. [facility]
== END | disposition home or self-care (01) ==
LOC: RADMAMWWP 15:01
PROVIDERS: ATTEND Family Medicine
DX: Z12.31 Encounter for screening mammogram for malignant neoplasm of breast (principal); R92.333 Mammographic heterogeneous density, bilateral breasts; Z78.0 Asymptomatic menopausal state; Z92.0 Personal history of contraception
CPT/HCPCS: 77063; 77067